=== PATIENT | male | born 1990 | race Caucasian/White ===

== ENCOUNTER 2021-07-28 08:44 | Emergency (ER) | payer OTHER ==
[~2021-07-28] VITALS: Ht 188 cm; Wt 68.5 kg
[2021-07-28 09:01] VITALS: BP 148/57
--- NOTE | 2021-07-28 09:01 | NUR ---
TO ER BED 11, C/O EYE BURNING SENSATION S/P PEPPERED SPRAY, WASHED ALREADY BEFORE COMING TO ER, AAOX4, BREATHING EVEN AND NON LABORED
[2021-07-28] MEDS ORDERED: IBUPROFEN 600 MG TABLET ONE (09:15)
[2021-07-28] MEDS ORDERED: IBUP-1955 PO (09:17)
[2021-07-28] MEDS ORDERED: IBUPROFEN 600 MG TABLET PO ONE (09:30)
--- NOTE | 2021-07-28 10:09 | NUR ---
Patient given written and verbal discharge instructions. Patient verbalizes understanding of instructions. Patient is ambulatory with steady gait. Refuses offer of mcc placement. Patient given list of available shelters in surrounding area. PT refused to sign DC and homeless waiver.
== END 2021-07-28 10:09 | disposition home or self-care (01) ==
LOC: ER 08:51
DX: T65.891A Toxic effect of other specified substances, accidental (unintentional), initial encounter (principal); L53.0 Toxic erythema; F17.200 Nicotine dependence, unspecified, uncomplicated; Z59.0 Homelessness; Y92.89 Other specified places as the place of occurrence of the external cause

== ENCOUNTER 2021-07-30 20:50 | Emergency (ER) | payer OTHER ==
[~2021-07-30] VITALS: Ht 190.5 cm; Wt 77.1 kg
[~2021-07-30 20:50] MED LIST: IBUP-1955 PO
--- NOTE | 2021-07-30 22:07 | NUR ---
BIB [facility] FOR OVERDOSE ON UNKNOWN DRUG, IM NARCAN GIVEN EN ROUTE AND PATIENT RESPONDED WELL. 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 MD WAS AT BEDSIDE FOR EVAL.
[2021-07-30 22:23] LABS: HEMOGLOBIN 16.3 g/dL (13.5-17.5)
[2021-07-30 22:27] LABS: BASOPHILS # (AUTO) 0.2 K/uL (0.0-0.2); BASOPHILS % (AUTO) 1.1 % (0.0-2.0); EOSINOPHILS % (AUTO) 2.4 % (0.0-6.0); HEMATOCRIT 49 % (39-51); LYMPHOCYTES # (AUTO) 2.6 K/uL (0.8-4.8); LYMPHOCYTES % (AUTO) 17.8 % (20.0-44.0); MEAN CORPUSCULAR HGB CONC 33 g/dl (31.0-36.0); MEAN CORPUSCULAR VOLUME 92 fL (80-96); MONOCYTES % (AUTO) 6.9 % (2.0-12.0); NEUTROPHILS # (AUTO) 10.6 K/uL (1.8-8.9); NEUTROPHILS % (AUTO) 71.8 % (43.0-81.0); PLATELET COUNT (AUTO) 318 K/uL (150-450); RED BLOOD CELL COUNT(AUTO) 5.32 MIL/uL (4.5-6.0); WHITE BLOOD COUNT (AUTO) 14.8 K/uL (4.3-11.0)
[2021-07-30 22:31] LABS: CARBON DIOXIDE 30 mmol/L (21-32); CHLORIDE 107 mmol/L (98-107); GLUCOSE 108 mg/dL (74-106); POTASSIUM 4.6 mmol/L (3.5-5.1); SODIUM SERUM 145 mmol/L (136-145); UREA NITROGEN, BLOOD 20 mg/dL (7-18)
[2021-07-30 22:39] LABS: ALANINE AMINOTRANSFERASE 57 U/L (12-78); ALBUMIN 4.1 g/dL (3.4-5.0); ALCOHOL, BLOOD < 3 mg/dL (0-0); ALKALINE PHOSPHATASE 95 U/L (46-116); ASPARTATE AMINOTRANSFERASE 29 U/L (15-37); BILIRUBIN,DIRECT 0.1 mg/dL (0.0-0.2); BILIRUBIN,TOTAL 0.4 mg/dL (0.2-1.0); TOTAL PROTEIN, SERUM 8.1 g/dL (6.4-8.2)
[2021-07-30 22:49] LABS: ACETAMINOPHEN 0 ug/ml (10-30)
[2021-07-31 00:09] LABS: EOSINOPHILS % (MANUAL) 4 % (0-4); LYMPHOCYTES % (MANUAL) 18 % (16-48); MONOCYTES % (MANUAL) 3 % (0-11.0); NEUTROPHILS % (MANUAL) 75 (42-76)
[2021-07-31 00:33] LABS: BILIRUBIN,URINE SMALL (NEGATIVE); COLOR,URINE DARK YELLOW (YELLOW); LEUKOCYTE ESTERASE ,URINE Negative (NEGATIVE); NITRITE, URINE Negative (NEGATIVE); PH,URINE 5.5 (5.0-8.0); PROTEIN,URINE Trace mg/dl (NEGATIVE); UGLUCOSE Negative (NEGATIVE); UROBILINOGEN,URINE 0.2 EU/dL (0.2)
--- NOTE | 2021-07-31 00:47 | NUR ---
covid test sent to lab
--- NOTE | 2021-07-31 00:54 | NUR ---
pt sleeping vss easily arousable breathing even and unlabored. call light within reach.
--- NOTE | 2021-07-31 02:08 | NUR ---
FAXED FACE SHEET [facility] TO [facility]. CALLED INTAKE TO CONFIRM
--- NOTE | 2021-07-31 07:44 | NUR ---
THE PATIENT IS SLEEPING IN ER BED #10. IN ROOM AIR. RESPIRATION REGULAR AND UNLABORED. THE PATIENT IS IN NO APPARENT DISTRESS. WILL CONTINUE TO MONITOR THE PATIENT.
--- NOTE | 2021-07-31 07:53 | NUR ---
CALLED [facility] FOLLOWING UP WITH FAXED CLINICALS. [facility] DID CONFIRM THEY HAVE RECIEVED THEM. WILL FOLLOW UP IN THE NEXT HOUR OF 0756.
--- NOTE | 2021-07-31 10:34 | NUR ---
FOLLOWED UP WITH [facility] AND WAS NOTIFIED THAT THE PT REPORT WAS UNDER REVIEW.
--- NOTE | 2021-07-31 11:05 | NUR ---
SS consult SS consult requested for overdose and homelessness. Pt is a 31-year-old, male. SW met with pt at his bedside in the emergency department. Pt was alert and oriented x3. Pt was not oriented to the situation which brought him to the hospital. Pt presented with a depressed mood and flat affect. Pt appeared well-groomed and appropriately dressed. Per chart, pt was brought in by ambulance on 07/30/21, for an overdose on an unknown substance. Pt stated that he is currently homeless and has been living on the [address] within this year. Pt reported that he was previously living in [place], [place] at a sober living facility. Pt is ambulatory and is independent with his ADL's. Pt stated that he receives no source of income at this time and has no access to social support from friends/family. Pt reported hx of drug abuse and stated "I can't name them I'm not a snitch." Pt stated that his drug use is daily and did not want to provide additional information regarding his frequency of drug use. SW assessed pt's hx of mental illness and pt reported hx of Depression and Bipolar Disorder. Pt is not currently taking psychotropic medication. Pt denied hx of hallucinations. Pt reported current SI without a plan and denied HI. SW offered the pt mental health, substance use, and homeless resources. Pt accepted the resources and thanked SW. Pt signed the homeless waiver and SW filed the waiver in the pt's chart. Pt requested voluntary psychiatric admission. Per chart, PAYAL Peterson faxed pt's clinicals to [facility]. Pt's clinicals are in review. PLAN: Pt requested voluntary psychiatric admission. Pt's clinicals have been faxed to [facility], for review. No further SS intervention at this time, however, SW will remain available as needed. RESOURCES: Year-round shelters: [facility] [address] [place] [address] ; [facility] [address] [place] [address]; [facility] [address] [facility]. [facility] [address] SPA 4 | [facility] Provider: [facility] Address: [address] [place] [address], [facility] # of Beds: 48 Population Served: [facility] Provider: [facility] Serve Address: [address] [facility], [address] # of Beds: 73 Population Served: Shareed SPA 6 | [facility] Provider: [facility] Last Address: [address] [facility], [address] # of Beds: 63 Population Served: [facility] S[facility] 3 | [facility] Provider: [facility] [place] Address: [address] [facility], [address] # of Beds: 75 Population Served: [facility] 8 | [facility] Provider: [facility] [place] Address: [address] [facility] [address] # of Beds: 80 Population Served: Shareed SPA 1 | [facility] Provider: [facility] [place] Address: [address] [place] [address], [address] # of Beds: 85 Population Served: [facility] 2 | [facility] Provider: [facility] Address: Confidential (please call for location) # of Beds: 52 Population Served: [facility] 4 | [facility] Provider: [facility] Address: [address] [facility], [address] # of Beds: 49 Population Served: Louann [facility] Provider: First To Serve Address: [address] [facility], [address] # of Beds: 27 Population Served: Sharee Hygiene: [facility]: [address] V[address]im Ramirez ; [facility] [address] [address] [facility] ; [facility] [address] . Food Resources: [place] [employer] [facility] at [facility]- [address] [place]; Meet Each Need with Dign[facility] ([facility]) [address] [facility]. [place]; [facility] Food [facility]ry [address] [facility]; [facility] [address]. Mental Health resources provided: [facility] [address] [place] [address] ; [facility] [place] [address] [address] [facility] [address], [place] [address] ; [facility] [address] [facility] [place], [place] [phone] ; [facility] [address] [place], [place] [address] Healthcare Clinics: [facility] [address] [facility], [address] [place]. [place] ; [facility] [address] [facility] [address] [place] [address]; [facility] [address] [facility]. [place] [phone] Counseling--Outpatient [facility] [address] [facility], [place] [address] (Specializes in in-depth psychotherapy for emotional distress: anxiety, depression, interpersonal conflicts, life transitions, childhood abuse) PSYCHIATRIC OUTPATIENT SERVICES [facility] Partial Hospitalization and Intensive Outpatient Program (Managed Care and [place] Only) [address] [facility] [id number] [facility] Partial Hospitalization and Outpatient Program [address] [place] [address] [facility] [place] Partial Hospitalization and Outpatient Program [address] [place], [place] [id number] VAN YS [facility] [address] [facility] [place], [place] [id number] [facility] Partial Hospitalization and Outpatient Program [address] [place], [place] [phone] Substance use resources provided included: [facility] Substance Abuse Self-Helpline (SAS) ; [facility] [address] [facility]. [place] [address] ; [facility] [address] [facility] [address] ; [facility] [address] [facility] [phone] ; [facility] [address] [facility] [address] ; [facility] [address] [facility] [phone] ; [facility]; [facility] [place]; [place]ola Oreland Zahra; Alcoholics Anonymous -SFV
--- NOTE | 2021-07-31 12:31 | NUR ---
PATIENT BECAME RESTLESS, STATING I'M TIRED OF WAITING, I WANT TO GO ON MY OWN. PATIENT EXITED ER
--- NOTE | 2021-07-31 14:47 | NUR ---
Patient discharged to home in stable condition. Written and verbal after care instructions given. Patient verbalizes understanding of instruction.
[2021-07-31 14:50] VITALS: BP 127/63
== END 2021-07-31 14:51 | disposition home or self-care (01) ==
LOC: ER 20:54
DX: T40.602A Poisoning by unspecified narcotics, intentional self-harm, initial encounter (principal); R40.4 Transient alteration of awareness; Y92.480 Sidewalk as the place of occurrence of the external cause; F19.10 Other psychoactive substance abuse, uncomplicated; F31.9 Bipolar disorder, unspecified; Z20.822 Contact with and (suspected) exposure to COVID-19; Z53.20 Procedure and treatment not carried out because of patient's decision for unspecified reasons; Z59.0 Homelessness
CPT/HCPCS: 36415; 80048; 80076; 80143; 80307; 80320; 81003; 85007; 85025; 87426; 99285; C9803; G0480

== ENCOUNTER 2022-02-15 12:00 | Emergency (ER) | payer OTHER ==
[~2022-02-15] VITALS: Ht 188 cm; Wt 79.4 kg
[2022-02-15] MEDS ORDERED: SULF1TAB48 PO (12:10)
--- NOTE | 2022-02-15 12:10 | NUR ---
BIBS left elbow pain and swelling x 5 days. AMBULATORY, AAOX4
--- NOTE | 2022-02-15 12:23 | NUR ---
Patient given written and verbal discharge instructions. Patient verbalizes understanding of instructions. Patient is ambulatory with steady gait. Refuses offer of long-term placement. Patient given list of available shelters in surrounding area. Patient refused to sign discharge paper.
== END 2022-02-15 12:23 | disposition home or self-care (01) ==
LOC: ER 12:04
DX: L03.113 Cellulitis of right upper limb (principal); F17.200 Nicotine dependence, unspecified, uncomplicated; Z59.00 Homelessness unspecified; Z79.1 Long term (current) use of non-steroidal anti-inflammatories (NSAID); Z79.899 Other long term (current) drug therapy